=== PATIENT | female | born 1965 | race Caucasian/White ===

== ENCOUNTER → 2017-01-11 | Outpatient (CLI) | payer OTHER ==
--- NOTE | 2017-01-11 14:02 | XR ---
EXAMINATION TYPE: 3 views right shoulder. 3 views thoracic spine. 3 views lumbar spine. DATE OF EXAM: 01/11/2017 COMPARISON: NONE HISTORY: 51-year-old female thrown against the wall with pain. FINDINGS: Right shoulder: AC joint appears intact. Subacromial space is preserved. No acute fracture, subluxation, or dislocati on. Visualized right hemithorax is clear. Thoracic spine: 12 rib-bearing thoracic vertebral bodies. All pedicles are visualized. Mild endplate spondylosis mid thoracic spine. Vertebral body heights are preserved and alignment is maintained. Lumbar spine: Post surgical changes of L4-S1 posterior and interbody fusion as well as lateral osseous fusion. Holly esponding laminectomies. Vertebral body heights are maintained as is alignment. COMBINED IMPRESSION: 1. Right shoulder: No acute osseous abnormality seen. 2. Thoracic spine: No vertebral compression collapse or malalignment. 3. Lumbar spine: Status post L4-S1 lumbar fusion. No vertebral compression collapse or malalignment.
== END ==
LOC: RADXRMAIN 13:24
PROVIDERS: ATTEND Emergency Medicine
DX: S20.221A Contusion of right back wall of thorax, initial encounter (principal); S40.011A Contusion of right shoulder, initial encounter; Z98.1 Arthrodesis status
CPT/HCPCS: 72072; 72100

== ENCOUNTER → 2017-01-18 | Outpatient (CLI) | payer OTHER ==
--- NOTE | 2017-01-18 23:12 | MR ---
EXAMINATION TYPE: MR thoracic spine wo con DATE OF EXAM: 01/18/2017 COMPARISON: NONE HISTORY: Mid back pain x1 week Standard multiplanar, multisequence MRI departmental protocol Multiplanar, multisequence images of the thoracic spine were acquired. FINDINGS: The thoracic vertebra have fairly normal spacing and alignment. There is no compression fra cture. Thoracic spinal cord has normal signal pattern without evidence of edema. There is no sign of thoracic spinal stenosis. There is no thoracic paraspinal mass. Posterior elements are intact. IMPRESSION: Thoracic spine appears normal for age. No fracture. No spinal stenosis.
== END | disposition home or self-care (01) ==
LOC: RADMRIMAIN 17:06
PROVIDERS: ATTEND Emergency Medicine
DX: S20.221D Contusion of right back wall of thorax, subsequent encounter (principal); S40.011D Contusion of right shoulder, subsequent encounter; M54.5 Low back pain
CPT/HCPCS: 72146

== ENCOUNTER → 2017-01-21 | Outpatient (CLI) | payer OTHER ==
--- NOTE | 2017-01-22 16:26 | MR ---
EXAMINATION TYPE: MR lumbar spine wo/w con DATE OF EXAM: 01/21/2017 COMPARISON: None HISTORY: 51-year-old female Contusion, Low back pain Technique: Multiplanar, multisequence images of the lumbar spine were obtained before and after admin istration of 6.5 mL intravenous Gadavist gadolinium contrast. FINDINGS: Vertebral body heights are preserved and alignment is maintained. There are postsurgical changes of L4-S1 posterior and interbody with corresponding laminectomies. No significant epidural or perineural enhancing granulation tissue is seen. Right L5 hemisacralization. However, this level has been fused. Conus medullaris is normal. No suspicious bone marrow replacement. At T12-L1, no canal or foraminal stenosis. At L1-L2, no canal or foraminal stenosis. At L2-L3, there is mild posterior disc bulge and facet degenerative change. Changes result in minimal inferior foraminal narrowing on both sides without significant spinal canal stenosis. At L3-L4, the level above fusion, there is ligamentum flavum thickening and mild disc bulge with face t arthropathy. While there is circumferential attenuation of the thecal sac, there is no significant spinal canal stenosis and only minimal inferior neuroforaminal narrowing on both sides. At L4-L5, there is dorsal decompression of the thecal sac and moderate bilateral neuroforaminal steno sis. At L5-S1, there is dorsal decompression at the thecal sac with mild bilateral neuroforaminal stenosis . No prevertebral or paravertebral soft tissue anomaly seen. IMPRESSION: 1. Status post L4-S1 posterior and interbody fusion with laminectomies. 2. Above the fusion at L3-L4, there is ligamentum flavum thickening, facet arthropathy, and mild disc bulge. This causes slight circumferential attenuation of the thecal sac without significant spinal c anal stenosis. 3. Some residual hyperostotic changes at L4-L5 causing moderate bilateral neural foraminal stenosis. 4. Mild bilateral neuroforaminal stenosis at L5-S1. 5. No suspicious epidural or perineural enhancing granulation tissue.
== END | disposition home or self-care (01) ==
LOC: RADMRIMAIN 14:48
PROVIDERS: ATTEND Emergency Medicine
DX: M99.73 Connective tissue and disc stenosis of intervertebral foramina of lumbar region (principal); M51.26 Other intervertebral disc displacement, lumbar region; M46.86 Other specified inflammatory spondylopathies, lumbar region; Z98.1 Arthrodesis status
CPT/HCPCS: 72158; A9581

== ENCOUNTER 2018-04-27 12:10 | Day surgery (SDC) | payer BC ==
[2018-04-26 11:22] VITALS: BMI 24.7
[2018-04-27 12:42] VITALS: TEMP 97.9
[2018-04-27] MEDS ORDERED: LIDOCAINE 1% 20 ML VIAL (10MG/ML) FOR IV START INTRADERMA ONE (13:03)
[2018-04-27] MEDS ORDERED: LACTATED RINGERS 1,000 ML IV ONE (13:05)
[2018-04-27] MEDS ORDERED: PROPOFOL 10 MG/ML 20 ML VIAL IV ONE (13:39)
--- NOTE | 2018-04-27 13:56 | P.PCN ---
Date of Procedure: 04/27/18 Procedure(s) Performed: BRIEF HISTORY: Patient is a 52-year-old pleasant female, scheduled for an elective colonoscopy as a part of screening for colorectal neoplasia. PROCEDURE PERFORMED: Colonoscopy. PREOPERATIVE DIAGNOSIS: Screening for colon cancer. IV sedation per Anesthesia. PROCEDURE: After informed consent was obtained, the patient, was brought into the endoscopy unit. IV sedation was administered by Anesthesia under continuous monitoring. Digital rectal examination was normal. Initially the Olympus CF- 160 flexible video colonoscope was then inserted in the rectum, gradually advanced into the cecum without any difficulty. Careful examination was performed as the scope was gradually being withdrawn. Ileocecal valve and the appendiceal orifice were visualized and appeared normal. Prep was excellent. Mucosa of the cecum, ascending colon, transverse colon, descending colon, sigmoid colon, and rectum appeared normal. Retroflexion was performed in the rectum and no lesions were seen. The patient tolerated the procedure well. IMPRESSION: Normal-appearing colon from rectum to cecum with no evidence of colorectal neoplasia . RECOMMENDATIONS: Findings of this examination were discussed with the patient as well as a family. She was advised to have a repeat screening colonoscopy in 10 years.
[2018-04-27 14:02] VITALS: RESP 16
[2018-04-27 14:16] LABS: Glucose,Whole Blood 82 mg/dL (75-99)
[2018-04-27 14:23] VITALS: BP 145/84; PULSE 62
== END 2018-04-27 14:40 | disposition home or self-care (01) ==
LOC: ORWHC2ENDO 12:10
PROVIDERS: ATTEND Internal Medicine Gastroenterology
DX: Z12.11 Encounter for screening for malignant neoplasm of colon (principal); G89.29 Other chronic pain; M54.5 Low back pain; Z79.890 Hormone replacement therapy; Z88.2 Allergy status to sulfonamides
CPT/HCPCS: J2704; G0121

== ENCOUNTER → 2018-10-05 | Outpatient (CLI) | payer BC ==
--- NOTE | 2018-10-05 10:22 | MR ---
EXAMINATION TYPE: MR brain and iac wo/w con DATE OF EXAM: 10/05/2018 COMPARISON: None HISTORY: Acoustic Neuroma, vertigo, inner ear pressure TECHNIQUE: Multiplanar, multisequence images of the brain and brainstem, small [id number] high-resolution nusrat ges of the internal auditory canals is performed without and with IV contrast, utilizing 6.5 mL intra venous Gadavist . FINDINGS: Diffusion weighted images demonstrate no evidence of a recent infarct or other diffusion ab normality. There is no extra-axial fluid collection. There are subcortical hyperintensities on inver kaley recovery T2-weighted sequences within the left and right frontal white matter, approximately 3-5 lesions are present. Largest is on axial image 18 on the left measuring approximately 5 mm. The vent ricular system and cisternal spaces are normal in size and appearance. The brain volume is age appro priate. There are normal vascular flow voids. Midline structures demonstrate normal morphology. The craniocervical junction appears within normal limits. Post contrast images demonstrate no abnormal enhancement. The dural venous sinuses appear pa tent. The visualized sinuses are remarkable for mild inflammatory change in the ethmoid air cells, an d the globes are intact. IMPRESSION: Nonspecific white matter demyelination of questionable clinical significance, differentia l includes hypertension, migraine headaches, vasculitis, Lyme disease, multiple sclerosis felt to be less likely. Sinus disease. No internal auditory canal mass.
== END | disposition home or self-care (01) ==
LOC: RADMRIMAIN 07:08
PROVIDERS: ATTEND Otolaryngology Otolaryngology/Facial Plastic Surgery
DX: D33.3 Benign neoplasm of cranial nerves (principal)
CPT/HCPCS: 70553; A9585

== ENCOUNTER → 2018-10-23 | Outpatient (CLI) | payer BC ==
[2018-10-23 18:26] LABS: Protein, Total 6.2 g/dL (6.2-8.2)
[2018-10-23 18:53] LABS: Beta 2 Microglobulin 1.83 mg/L (0.61-2.37)
[2018-10-24 10:13] LABS: Albumin 3.93 g/dL (3.80-4.90); Gamma Globulin 0.72 g/dL (0.70-1.50)
[2018-10-24 11:15] LABS: IgG Subclass 3 26.7 mg/dL (11.0-85.0); IgG Subclass 4 21.9 mg/dL (3.0-175.0); Immunoglobulin M 51.4 mg/dL (40.0-280.0)
== END | disposition home or self-care (01) ==
LOC: LABWHC1 12:43
PROVIDERS: ATTEND Otolaryngology Otolaryngology/Facial Plastic Surgery
DX: D84.8 Other specified immunodeficiencies (principal)
CPT/HCPCS: 36415; 82232; 82784; 82787; 84165

== ENCOUNTER → 2019-05-22 | Outpatient (CLI) | payer BC ==
--- NOTE | 2019-05-22 11:03 | BD ---
EXAMINATION TYPE: Axial Bone Density DATE OF EXAM: 05/22/2019 COMPARISON: NONE CLINICAL HISTORY: N 95.1 Height: 62 inches Weight: 134 FRAX RISK QUESTIONS: Alcohol (3 or more units per day): no Family History (Parent hip fracture): no Glucocorticoids (More than 3mos): no (Ex: prednisone, prednisolone, methylprednisolone, dexamethasone, and hydrocortisone). History of Fracture in Adulthood: no Secondary Osteoporosis: 1. Type 1 Diabetes: no 2. Hyperthyroidism: no 3. Menopause before 45: no 4. Malnutrition: no 5. Chronic liver disease: no Rheumatoid Arthritis: no Current Tobacco Use: no RISK FACTORS HISTORY OF: Surgery to spine: yes, twice When: in last 10 years Family History of Osteoporosis: yes Active: yes Diet low in dairy products/other sources of calcium: at least one serving a day Postmenopausal woman: yes Take estrogen and/or progesterone medications: yes How long: about 3 years Lost more than 2 inches in height since high school: Frequent falls: no Poor Health: no Hyperparathyroidism: no Adrenal Insufficiency: no MEDICATIONS: Prednisone or other steroids: no Thyroid Medications: yes Which medication: Levothyroxine How Long: at least 15 years Osteoporosis Medications: no Additional Medications: vertigo med ; Estradiol, Xanax Additional History: vertigo, hysterectomy age 33 but has one ovary EXAM MEASUREMENTS: Bone mineral densitometry was performed using the Gravity System. Bone mineral density NOT measured about the Lumbar spine because of previous back surgeries Bone mineral density about the R hip (g/cm2): 0.944 Bone mineral density about the L hip (g/cm2): 0.962 T Score values are as follows: -----R Neck: -0.7 -----L Neck: -0.5 -----R Total: 0.3 -----L Total: 0.3 Bone mineral density BASELINE Bone mineral density about the L Wrist (g/cm2): 0.689 T Score values are as follows: -----Dist. R+U: 0.5 -----Prox. R+U: 0.0 -----Radius total: 0.2 Bone mineral density BASELINE IMPRESSION: Normal (Values between +1 and -1 indicate normal bone mass). Consider repeating this study in 5 year s or sooner if there is some new clinical indication. NOTE: T-SCORE=SD OF THE YOUNG ADULT MEAN.
--- NOTE | 2019-05-23 12:02 | MM ---
Reason for exam: screening (asymptomatic). Last mammogram was performed 2 years and 9 months ago. History: Retro-pectoral implants in both breasts, 2002. Taking estrogen for 3 years. Physical Findings: A clinical breast exam by your physician is recommended on an annual basis and results should be correlated with mammographic findings. MG 3D Screen Mammo Imp/Cad Bilateral CC, MLO, and ID view(s) were taken. Prior study comparison: August 05, 2016, mammogram, performed at [facility]. The breast tissue is heterogeneously dense. This may lower the sensitivity of mammography. There are benign appearing similar round 3mm left masses compared to 2017. Benign appearing bilateral calcifications. No suspicious abnormality. Bilateral retropectoral saline implants with folds bilaterally. No significant changes when compared with prior studies. ASSESSMENT: Benign, BI-RAD 2 RECOMMENDATION: Routine screening mammogram of both breasts in 1 year. Breast MRI could be considered to evaluate implant integrity.
== END | disposition home or self-care (01) ==
LOC: RADMAMWWP 09:30
PROVIDERS: ATTEND Obstetrics & Gynecology
DX: Z12.31 Encounter for screening mammogram for malignant neoplasm of breast (principal); N95.1 Menopausal and female climacteric states
CPT/HCPCS: 77063; 77067; 77080

== ENCOUNTER → 2020-07-08 | Outpatient (CLI) | payer BC ==
--- NOTE | 2020-07-14 18:18 | P.HOLTER ---
24-hour Holter monitor shows sinus mechanism, heart rates ranging from 57-154 beats a minute, average 84 beats a minute Occasional PVCs No sustained or nonsustained tachy-arrhythmias No significant bradycardia
--- NOTE | 2020-07-15 14:56 | HM ---
24-hour Holter monitor shows sinus mechanism, heart rates ranging from 57-154 beats a minute, average 84 beats a minute Occasional PVCs No sustained or nonsustained tachy-arrhythmias No significant bradycardia Additional CC's: Aris STUBBS
== END | disposition home or self-care (01) ==
LOC: RADECHMAIN 12:04
PROVIDERS: ATTEND Family Medicine
DX: R00.2 Palpitations (principal)
CPT/HCPCS: 93225; 93226

== ENCOUNTER → 2020-09-04 | Outpatient (CLI) | payer BC ==
--- NOTE | 2020-09-05 14:38 | MR ---
EXAMINATION TYPE: MR brain and iac wo/w con DATE OF EXAM: 09/04/2020 COMPARISON: MRI brain 10/05/2018 HISTORY: Persistent vertigo/imbalance TECHNIQUE: Multiplanar, multisequence images of the brain and brainstem with small [id number] and high resolu tion images through the internal auditory canals is performed without and with IV contrast, utilizing 7 mL intravenous Gadavist . FINDINGS: Diffusion weighted images demonstrate no evidence of a recent infarct or other diffusion ab normality. There is no extra-axial fluid collection or significant interval change in white matter s ignal abnormality. The ventricular system and cisternal spaces are normal in size and appearance. T he brain volume is age appropriate., Cerebellopontine angles are normal, no abnormal soft tissue vivek g the internal auditory canals, no abnormal enhancement at this level Midline structures demonstrate normal morphology. The craniocervical junction appears within normal limits. Post contrast images demonstrate no abnormal enhancement. The dural venous sinuses appear pa tent. The visualized sinuses are clear and the globes are intact. IMPRESSION: Stable brain MRI. No evident acoustic schwannoma. Nonspecific white matter demyelination is stable
== END | disposition home or self-care (01) ==
LOC: RADMRIMAIN 18:24
PROVIDERS: ATTEND Psychiatry & Neurology Neurology
DX: R90.82 White matter disease, unspecified (principal)
CPT/HCPCS: 70553; A9585

== ENCOUNTER → 2020-10-02 | Outpatient (CLI) | payer BC | END | disposition home or self-care (01) | LOC: LABWHC1 11:33 | PROVIDERS: ATTEND Internal Medicine Clinical Cardiac Electrophysiology | DX: E78.9 Disorder of lipoprotein metabolism, unspecified (principal) | CPT/HCPCS: 36415; 83721 ==

== ENCOUNTER → 2020-12-23 | Outpatient (CLI) | payer BC ==
[2020-12-24 17:02] LABS: T4, Free (Free Thyroxine) 1.1 ng/dL (0.80-1.80)
[2020-12-24 17:28] LABS: Thyroid Peroxidase Antibodies <28.0 U/mL (0.0-60.0)
== END | disposition home or self-care (01) ==
LOC: LABWHC1 15:47
PROVIDERS: ATTEND Internal Medicine Endocrinology, Diabetes & Metabolism
DX: E03.8 Other specified hypothyroidism (principal)
CPT/HCPCS: 36415; 84439; 84443; 86376; 86800

== ENCOUNTER → 2021-06-23 | Outpatient (CLI) | payer OTHER ==
--- NOTE | 2021-06-23 16:27 | XR ---
EXAMINATION TYPE: XR wrist complete RT, XR hand complete RT DATE OF EXAM: 06/23/2021 CLINICAL HISTORY: Pain and bruising after kicking injury. TECHNIQUE: Frontal, lateral and oblique images of the right hand and wrist are obtained. 4 view sca phoid view is performed. COMPARISON: None FINDINGS: There is no acute fracture/dislocation evident in the right wrist. The joint spaces in th e right wrist appear within normal limits. The overlying soft tissue appears unremarkable. Images of the right hand show no acute fracture or dislocation particular attention to second finger at area of clinical concern. Mild to moderate soft tissue swelling over the second finger. Joint spac es of the right hand are maintained. IMPRESSION: There is no acute fracture or dislocation in the right hand and wrist.
== END | disposition home or self-care (01) ==
LOC: RADXRMAIN 15:52
PROVIDERS: ATTEND Emergency Medicine
DX: S63.501A Unspecified sprain of right wrist, initial encounter (principal); S60.221A Contusion of right hand, initial encounter; X58.XXXA Exposure to other specified factors, initial encounter

== ENCOUNTER → 2021-06-29 | Outpatient (CLI) | payer OTHER ==
--- NOTE | 2021-06-29 09:37 | XR ---
EXAMINATION TYPE: XR wrist complete RT, XR hand complete RT DATE OF EXAM: 06/29/2021 CLINICAL HISTORY: Recent injury with continued pain. TECHNIQUE: Frontal, lateral and oblique images of the right hand and wrist are obtained. 4 view sca phoid view is performed. COMPARISON: Prior right wrist and hand x-ray 6 days ago FINDINGS: There is no acute fracture/dislocation evident in the right wrist. The carpal joint spaces are preserved. The overlying soft tissue appears unremarkable. No acute or subacute displaced fracture in the right hand. Joint spaces are maintained. Overlying sof t tissue is unremarkable. IMPRESSION: There is no acute fracture or dislocation in the right hand or wrist. No significant ebonie nge from prior.
== END | disposition home or self-care (01) ==
LOC: RADXRMAIN 09:05
PROVIDERS: ATTEND Emergency Medicine
DX: S63.501D Unspecified sprain of right wrist, subsequent encounter (principal); S60.221D Contusion of right hand, subsequent encounter; X58.XXXD Exposure to other specified factors, subsequent encounter

== ENCOUNTER → 2021-07-06 | Outpatient (CLI) | payer OTHER ==
[2021-07-07 02:47] LABS: ALT 22 U/L (8-44); AST 26 U/L (13-35); African American GFR (CKD) 87.4 (60.0-200.0); Albumin 4.8 g/dL (3.8-4.9); Albumin/Globulin Ratio 2.36 (1.60-3.17); Alkaline Phosphatase 51 U/L (41-126); Blood Urea Nitrogen 13.1 mg/dL (9.0-27.0); Calcium 9.9 mg/dL (8.7-10.3); Chloride 98 mmol/L (96-109); Chol/HDL Ratio 2.51 Ratio; Glucose 78 mg/dL (70-110); LDL Cholesterol,Calculated 109.4 mg/dL (0.0-131.0); Magnesium 2.4 mg/dL (1.5-2.4); Non-African American GFR(CKD) 75.4 (60.0-200.0); Potassium 4.9 mmol/L (3.5-5.5); Sodium 137 mmol/L (135-145); Total Protein 6.8 g/dL (6.2-8.2); VLDL Calculation 10.18 mg/dL (5.00-40.00)
== END | disposition home or self-care (01) ==
LOC: LABWHC1 10:54
PROVIDERS: ATTEND Internal Medicine Endocrinology, Diabetes & Metabolism
DX: E03.8 Other specified hypothyroidism (principal); I49.3 Ventricular premature depolarization; E78.5 Hyperlipidemia, unspecified
CPT/HCPCS: 36415; 80053; 80061; 83735; 84443

== ENCOUNTER → 2021-08-03 | Outpatient (CLI) | payer BC ==
--- NOTE | 2021-08-03 19:33 | US ---
EXAMINATION TYPE: US thyroid st tissue head/neck DATE OF EXAM: 08/03/2021 COMPARISON: NONE CLINICAL HISTORY: E03.8 HYPOTHYROIDISM. GLAND SIZE: Right Lobe: 3.3 x 0.8 x 0.9 cm Overall Parenchyma: homogenous Left Lobe: 3.3 x 0.7 x 0.8 cm Overall Parenchyma: homogeneous Isthmus Thickness: 0.13 cm NODULES RIGHT: # of nodules measured on right: 0 LEFT: # of nodules measured on left: 0 ISTHMUS: # of nodules measured in the isthmus: 0 Bilateral neck scanned, no evidence of lymphadenopathy. Homogeneous small sized thyroid without discrete nodule correlates with history of hypothyroidism. IMPRESSION: As above.
== END | disposition home or self-care (01) ==
LOC: RADUSWWP 16:52
PROVIDERS: ATTEND Internal Medicine Endocrinology, Diabetes & Metabolism
DX: E03.8 Other specified hypothyroidism (principal)
CPT/HCPCS: 76536

== ENCOUNTER 2021-08-20 09:27 | Observation (INO) | payer BC ==
[2021-08-20 09:32] VITALS: TEMP 98.4
[2021-08-20] MEDS ORDERED: ASPIRIN 81 MG PO STA (09:36)
[2021-08-20] MEDS ORDERED: NITROGLYCERIN OINT 1 INCH/GM PACKET TOPICAL STA (09:36)
--- NOTE | 2021-08-20 09:37 | ED ---
General Adult HPI - General Chief complaint: Chest Pain Stated complaint: Chest pain Time Seen by Provider: 08/20/21 09:30 Source: patient, EMS, RN notes reviewed, old records reviewed Mode of arrival: EMS - History of Present Illness Initial comments: This is a 55-year-old female who presents emergency Department complaining of chest pressure for the last hour. Patient states the pain radiates to her back and jaw. Patient states she has positive family history of heart disease in both mother and father. Patient denies any diaphoretic episodes. Patient states she was short of breath when it started. Patient denies nausea vomiting. Patient denies headache patient denies numbness weakness. Patient denies abdominal pain. Patient denies any smoking. Patient denies any swelling to the legs or calf tenderness. Patient states she wrote on the [place] for Li[employer] 20 miles this morning. - Related Data Home Medications Medication Instructions Recorded Confirmed Levothyroxine Sodium [Synthroid] 50 mcg PO DAILY 04/26/18 08/20/21 Ascorbic Acid [Vitamin C] 500 mg PO W/SUPPER 08/20/21 08/20/21 Baclofen [Lioresal] 10 mg PO DAILY PRN 08/20/21 08/20/21 Cholecalciferol [Vitamin D3 (125 125 mcg PO W/SUPPER 08/20/21 08/20/21 Mcg = 5000 Iu)] Magnesium Oxide 400 mg PO W/SUPPER 08/20/21 08/20/21 Melatonin 10 mg PO HS 08/20/21 08/20/21 Multivitamins, Thera [Multivitamin 1 tab PO W/SUPPER 08/20/21 08/20/21 (formulary)] Red Yeast Rice 600 mg PO W/SUPPER 08/20/21 08/20/21 Venlafaxine HCl [Effexor XR] 37.5 mg PO HS 08/20/21 08/20/21 clonazePAM [KlonoPIN] 0.25 mg PO DAILY 08/20/21 08/20/21 clonazePAM [KlonoPIN] 0.5 mg PO HS 08/20/21 08/20/21 Allergies Allergy/AdvReac Type Severity Reaction Status Date / Time Sulfa (Sulfonamide Allergy Swelling Verified 08/20/21 11:56 Antibiotics) hands and feet & fever Review of Systems ROS Statement: Those systems with pertinent positive or pertinent negative responses have been documented in the HPI. ROS Other: All systems not noted in ROS Statement are negative. Past Medical History Past Medical History: Thyroid Disorder Additional Past Medical History / Comment(s): LOW BACK PAIN, MDDS History of Any Multi-Drug Resistant Organisms: None Reported Past Surgical History: Appendectomy, Back Surgery, Cholecystectomy, Hysterectomy Past Anesthesia/Blood Transfusion Reactions: Postoperative Nausea & Vomiting (PONV) Past Psychological History: No Psychological Hx Reported Smoking Status: Never smoker Past Alcohol Use History: Rare Past Drug Use History: None Reported - Past Family History Mother Family Medical History: No Reported History General Exam - General Exam Comments Initial Comments: GENERAL: Patient is well-developed and well-nourished. Patient is nontoxic and well- hydrated and is in mild distress. ENT: Neck is soft and supple. No significant lymphadenopathy is noted. Oropharynx is clear. Moist mucous membranes. Neck has full range of motion without e liciting any pain. EYES: The sclera were anicteric and conjunctiva were pink and moist. Extraocular movements were intact and pupils were equal round and reactive to light. Eyelids were unremarkable. PULMONARY: Unlabored respirations. Good breath sounds bilaterally. No audible rales rhonchi or wheezing was noted. CARDIOVASCULAR: There is a regular rate and rhythm without any murmurs gallops or rubs. ABDOMEN: Soft and nontender with normal bowel sounds. SKIN: Skin is clear with no lesions or rashes and otherwise unremarkable. NEUROLOGIC: Patient is alert and oriented x3. Cranial nerves II through XII are grossly intact. Motor and sensory are also intact. Normal speech, volume and content. Symmetrical smile. MUSCULOSKELETAL: Normal extremities with adequate strength and full range of motion. LYMPHATICS: No significant lymphadenopathy is noted PSYCHIATRIC: Normal psychiatric evaluation. Course Vital Signs 08/20/21 08/20/21 08/20/21 09:28 10:21 10:46 Temperature 98.4 F Pulse Rate 60 58 L Pulse Rate [ 62 Crayon Sawyer ] Respiratory 18 16 Rate Blood Pressure 137/84 152/99 O2 Sat by Pulse 96 Oximetry Medical Decision Making - Medical Decision Making EKG shows sinus rhythm at 65 bpm KS interval 194 QRS is 82 QT interval 42 QTC is 413. Patient's EKG shows no ST segment elevation or depression. Patient's chest pain had resolved in the emergency department after nitro paste was applied. Chest x-ray shows no acute abnormality. I spoke with Dr. ramon under admit the patient admitted the patient I wrote admitting her to consulted cardiology. - Lab Data Result diagrams: 08/20/21 10:09 08/20/21 10:45 Lab Results 08/20/21 08/20/21 08/20/21 Range/Units 10:09 10:09 10:45 WBC 6.2 (3.8-10.6) k/uL RBC 4.22 (3.80-5.40) m/uL Hgb 13.1 (11.4-16.0) gm/dL Hct 40.0 (34.0-46.0) % MCV 94.8 (80.0-100.0) fL MCH 31.0 (25.0-35.0) pg MCHC 32.7 (31.0-37.0) g/dL RDW 12.0 (11.5-15.5) % Plt Count 282 (150-450) k/uL MPV 8.0 Neutrophils % 55 % Lymphocytes % 35 % Monocytes % 6 % Eosinophils % 1 % Basophils % 1 % Neutrophils # 3.4 (1.3-7.7) k/uL Lymphocytes # 2.2 (1.0-4.8) k/uL Monocytes # 0.4 (0-1.0) k/uL Eosinophils # 0.1 (0-0.7) k/uL Basophils # 0.1 (0-0.2) k/uL PT 10.1 (9.0-12.0) sec INR 0.9 (<1.2) APTT 23.0 (22.0-30.0) sec Sodium (137-145) mmol/L Potassium (3.5-5.1) mmol/L Chloride (98-107) mmol/L Carbon Dioxide (22-30) mmol/L Anion Gap mmol/L BUN (7-17) mg/dL Creatinine (0.52-1.04) mg/dL Est GFR (CKD-EPI)AfAm (>60 ml/min/1.73 sqM) Est GFR (CKD-EPI)NonAf (>60 ml/min/1.73 sqM) Glucose (74-99) mg/dL Calcium (8.4-10.2) mg/dL Magnesium (1.6-2.3) mg/dL Total Bilirubin (0.2-1.3) mg/dL AST (14-36) U/L ALT (4-34) U/L Alkaline Phosphatase (38-126) U/L Troponin I <0.012 (0.000-0.034) ng/mL Total Protein (6.3-8.2) g/dL Albumin (3.5-5.0) g/dL 08/20/21 Range/Units 10:45 WBC (3.8-10.6) k/uL RBC (3.80-5.40) m/uL Hgb (11.4-16.0) gm/dL Hct (34.0-46.0) % MCV (80.0-100.0) fL MCH (25.0-35.0) pg MCHC (31.0-37.0) g/dL RDW (11.5-15.5) % Plt Count (150-450) k/uL MPV Neutrophils % % Lymphocytes % % Monocytes % % Eosinophils % % Basophils % % Neutrophils # (1.3-7.7) k/uL Lymphocytes # (1.0-4.8) k/uL Monocytes # (0-1.0) k/uL Eosinophils # (0-0.7) k/uL Basophils # (0-0.2) k/uL PT (9.0-12.0) sec INR (<1.2) APTT (22.0-30.0) sec Sodium 139 (137-145) mmol/L Potassium 3.9 (3.5-5.1) mmol/L Chloride 107 (98-107) mmol/L Carbon Dioxide 28 (22-30) mmol/L Anion Gap 4 mmol/L BUN 10 (7-17) mg/dL Creatinine 0.77 (0.52-1.04) mg/dL Est GFR (CKD-EPI)AfAm >90 (>60 ml/min/1.73 sqM) Est GFR (CKD-EPI)NonAf 86 (>60 ml/min/1.73 sqM) Glucose 84 (74-99) mg/dL Calcium 8.6 (8.4-10.2) mg/dL Magnesium 2.2 (1.6-2.3) mg/dL Total Bilirubin 0.5 (0.2-1.3) mg/dL AST 31 (14-36) U/L ALT 17 (4-34) U/L Alkaline Phosphatase 46 (38-126) U/L Troponin I (0.000-0.034) ng/mL Total Protein 6.1 L (6.3-8.2) g/dL Albumin 3.8 (3.5-5.0) g/dL Disposition Clinical Impression: Chest pain Disposition: ADMITTED IP TO THIS HOSP Referrals: Aris Anguiano DO [Primary Care Provider] - 1-2 days Time of Disposition: 11:30
--- NOTE | 2021-08-20 10:27 | XR ---
EXAMINATION TYPE: XR chest 2V DATE OF EXAM: 08/20/2021 COMPARISON: NONE HISTORY: Shortness of breath TECHNIQUE: Frontal and lateral views of the chest are obtained. FINDINGS: Scattered senescent parenchymal changes noted. No evidence for infiltrate. No evidence for atelectasis. Heart size is stable. Mediastinal structures are stable and grossly unremarkable. No evidence for hilar prominence. Degenerative changes dorsal spine. IMPRESSION: 1. No evidence for acute pulmonary disease.
[2021-08-20 10:32] LABS: Basophils # (A) 0.1 k/uL (0-0.2); Basophils % (A) 1 %; Eosinophils # (A) 0.1 k/uL (0-0.7); Eosinophils % (A) 1 %; HGB 13.1 gm/dL (11.4-16.0); Lymphocytes # (A) 2.2 k/uL (1.0-4.8); Lymphocytes % (A) 35 %; MCHC 32.7 g/dL (31.0-37.0); MCV 94.8 fL (80.0-100.0); Monocytes # (A) 0.4 k/uL (0-1.0); Monocytes % (A) 6 %; Neutrophils # (A) 3.4 k/uL (1.3-7.7); Neutrophils % (A) 55 %; Platelet Count 282 k/uL (150-450); RBC 4.22 m/uL (3.80-5.40); WBC 6.2 k/uL (3.8-10.6)
[2021-08-20 10:48] LABS: INR 0.9 (<1.2); Prothrombin Time 10.1 sec (9.0-12.0)
[2021-08-20 10:49] VITALS: RESP 16
[2021-08-20 11:14] LABS: ALT 17 U/L (4-34); AST 31 U/L (14-36); African American GFR (CKD) >90 (>60 ml/min/1.73 sqM); Albumin 3.8 g/dL (3.5-5.0); Alkaline Phosphatase 46 U/L (38-126); Anion Gap 4 mmol/L; Blood Urea Nitrogen 10 mg/dL (7-17); Calcium 8.6 mg/dL (8.4-10.2); Carbon Dioxide 28 mmol/L (22-30); Chloride 107 mmol/L (98-107); Glucose 84 mg/dL (74-99); Magnesium 2.2 mg/dL (1.6-2.3); Non-African American GFR(CKD) 86 (>60 ml/min/1.73 sqM); Potassium 3.9 mmol/L (3.5-5.1); Sodium 139 mmol/L (137-145); Total Bilirubin 0.5 mg/dL (0.2-1.3); Total Protein 6.1 g/dL (6.3-8.2)
[2021-08-20] MEDS ORDERED: NITROGLYCERIN SL TABS 0.4 MG TAB SUBLINGUAL PRN (12:06)
[2021-08-20 15:01] VITALS: BP 120/56; PULSE 56
[2021-08-20] MEDS ORDERED: NITROGLYCERIN OINT 1 INCH/GM PACKET TOPICAL SCH (18:00)
[2021-08-21] MEDS ORDERED: ASPIRIN 325 MG TAB PO SCH (09:00)
[2021-08-21 09:17] LABS: HDL Cholesterol 69.7 mg/dL (40.00-60.00); Triglycerides 35.6 mg/dL (0.00-149.00)
[2021-08-21 09:35] LABS: Chol/HDL Ratio 2.45 Ratio
== END 2021-08-21 10:10 | disposition home or self-care (01) ==
LOC: EC 09:27 → 6NMEDSUR 12:06
PROVIDERS: ADMIT Family Medicine; ATTEND Family Medicine
DX: R07.89 Other chest pain (principal); R06.02 Shortness of breath; R68.84 Jaw pain; Z79.890 Hormone replacement therapy; Z88.2 Allergy status to sulfonamides; E07.9 Disorder of thyroid, unspecified; M54.50 Low back pain, unspecified; Z90.49 Acquired absence of other specified parts of digestive tract; Z90.710 Acquired absence of both cervix and uterus; Z82.49 Family history of ischemic heart disease and other diseases of the circulatory system
CPT/HCPCS: 99285; 36415; 93005; 80061; 80053; 83735; 84484; 85025; 85610; 85730; 83721; 71046; G0378 ×2

== ENCOUNTER → 2022-08-05 | Outpatient (CLI) | payer BC | END | disposition home or self-care (01) | LOC: LABWHC1 15:34 | PROVIDERS: ATTEND Internal Medicine Endocrinology, Diabetes & Metabolism | DX: E03.8 Other specified hypothyroidism (principal) | CPT/HCPCS: 36415; 84443 ==

== ENCOUNTER → 2022-10-10 | Outpatient (CLI) | payer BC ==
--- NOTE | 2022-10-12 08:08 | MM ---
Reason for Exam: Screening (asymptomatic). Last mammogram was performed 3 year(s) and 5 month(s) ago. Indicated Problems: Skin thickening or retraction of the left side for 2 Month(s). Patient History: Menarche at age 12. First Full-Term at age 24. Hysterectomy at age 33. Currently using Estrogen, for 3 years. 2001, Bilateral Implants. Risk Values: Karlene 5 year model risk: 1.4%. NCI Lifetime model risk: 7.8%. Prior Study Comparison: 08/05/2016 Screening Mammogram, [facility]. 05/22/2019 Bilateral Screening Mammogram, [facility]. Tissue Density: There are scattered fibroglandular densities. Findings: Analyzed By CAD. There is no suspicious group of microcalcifications or new suspicious mass in either breast. Bilateral saline implants are intact. Overall Assessment: Benign, BI-RAD 2 Management: Screening Mammogram of both breasts in 1 year. . Patient should continue monthly self-breast exams. A clinical breast exam by your physician is recommended on an annual basis. This exam should not preclude additional follow-up of suspicious palpable abnormalities. Note on Karlene scores and lifetime risk: 1. A Karlene score greater than 3% is considered moderate risk. If this is the case, consider specialist referral to assess eligibility for a risk reducing agent. 2. If overall lifetime risk for the development of breast cancer is 20% or higher, the patient may qualify for future screening with alternating mammogram and breast MRI. Electronically signed and approved by: Justyn Joshua M.D. Radiologis
== END | disposition home or self-care (01) ==
LOC: RADMAMWWP 15:34
PROVIDERS: ATTEND Family Medicine
DX: Z12.31 Encounter for screening mammogram for malignant neoplasm of breast (principal)
CPT/HCPCS: 77063; 77067

== ENCOUNTER → 2022-10-10 | Outpatient (CLI) | payer BC | END | disposition home or self-care (01) | LOC: LABWHC1 14:59 | PROVIDERS: ATTEND Internal Medicine Endocrinology, Diabetes & Metabolism | DX: R73.09 Other abnormal glucose (principal); Z83.3 Family history of diabetes mellitus | CPT/HCPCS: 36415; 83036 ==

== ENCOUNTER → 2022-11-24 | Outpatient (CLI) | payer BC | END | disposition home or self-care (01) | LOC: LABWHC1 11:04 | PROVIDERS: ATTEND Internal Medicine Endocrinology, Diabetes & Metabolism | DX: E03.8 Other specified hypothyroidism (principal); R73.09 Other abnormal glucose; Z83.3 Family history of diabetes mellitus | CPT/HCPCS: 36415; 83036; 84443 ==

== ENCOUNTER → 2023-05-03 | Outpatient (CLI) | payer BC ==
[2023-05-03 16:10] LABS: T4, Free (Free Thyroxine) 1.16 ng/dL (0.80-1.80)
[2023-05-03 21:29] LABS: DNA Double-Stranded Negative (Negative)
== END | disposition home or self-care (01) ==
LOC: LABWHC1 11:36
PROVIDERS: ATTEND Psychiatry & Neurology Neurology
DX: H04.129 Dry eye syndrome of unspecified lacrimal gland (principal); R42 Dizziness and giddiness
CPT/HCPCS: 36415; 84439; 84443; 85652; 86038; 86225; 86235

== ENCOUNTER → 2023-06-23 | Outpatient (CLI) | payer BC ==
--- NOTE | 2023-06-23 07:55 | MM ---
Reason for Exam: Clinical finding. Last screening mammogram was performed 8 month(s) ago. Indicated Problems: Lump or thickening of the right side for 4 Month(s). Patient History: Menarche at age 12. First Full-Term at age 24. Hysterectomy at age 33. Currently using Estrogen, for 3 years. 2001, Bilateral Implants. Risk Values: Karlene 5 year model risk: 1.4%. NCI Lifetime model risk: 7.6%. Prior Study Comparison: 08/05/2016 Screening Mammogram, [facility]. 05/22/2019 Bilateral Screening Mammogram, [facility]. 10/10/2022 Bilateral MG 3D screen mammo imp/cad., [facility]. Tissue Density: The breasts are heterogeneously dense, which may obscure small masses. Findings: Analyzed By CAD. Bilateral retropectoral saline implants. Benign bilateral oil cyst calcifications. Areas of asymmetric density are unchanged. Small area of nodularity superior left breast is also unchanged. Overall Assessment: Incomplete: need additional imaging evaluation, BI-RAD 0 Management: Diagnostic Breast Ultrasound of the right breast. For the symptomatic area in the axilla. Electronically signed and approved by: Liza Padilla M.D. Radiologist
--- NOTE | 2023-06-23 08:14 | USB ---
Reason for Exam: Clinical finding. Patient History: Menarche at age 12. First Full-Term at age 24. Hysterectomy at age 33. Currently using Estrogen, for 3 years. 2001, Bilateral Implants. Risk Values: Karlene 5 year model risk: 1.4%. NCI Lifetime model risk: 7.6%. Technique: Method: Targeted. Prior Study Comparison: 08/05/2016 Screening Mammogram, [facility]. 05/22/2019 Bilateral Screening Mammogram, [facility]. 10/10/2022 Bilateral MG 3D screen mammo imp/cad., [facility]. Findings: The upper outer quadrant of the right breast, the axilla of the right breast and the retroareolar of the right breast were scanned. Targeted ultrasound of the peripheral upper outer quadrant and axilla of the right breast (corresponding to the patient's symptomatic area of concern) including the subareolar region. Couple nonenlarged axillary lymph nodes are noted measuring up to 1.2 x 0.6 cm. Thin uniform cortex. Slightly heterogeneous fatty hilum felt to be normal variation. There is a more focal, elongated hypoechoic area located deeper in the axilla along the musculature, possible artifact/anisotropy along a myotendinous junction measuring 2.8 x 0.9 x 0.7 cm. Patient's underlying breast implant is seen. Overall Assessment: Benign, BI-RAD 2 Management: Screening Mammogram of both breasts in 1 year. If symptoms persist, consider further contrast enhanced CT evaluation for the patient's area of concern which seems to correspond to a musculoskeletal structure. A skin marker can be placed at the symptomatic site at the time of CT. A clinical breast exam by your physician is recommended on an annual basis and results should be correlated with mammographic findings. This exam should not preclude additional follow-up of suspicious palpable abnormalities. Results were given to the patient verbally at the time of exam. Electronically signed and approved by: Liza Padilla M.D. Radiologist
== END | disposition home or self-care (01) ==
LOC: RADMAMWWP 07:03
PROVIDERS: ATTEND Family Medicine
DX: N63.10 Unspecified lump in the right breast, unspecified quadrant (principal)
CPT/HCPCS: 77062; 77066

== ENCOUNTER → 2023-07-19 | Outpatient (CLI) | payer OTHER ==
--- NOTE | 2023-07-19 16:00 | XR ---
EXAMINATION TYPE: XR knee complete LT DATE OF EXAM: 07/19/2023 3:44 PM CLINICAL INDICATION:Female, 57 years old with history of S83.92XA, S80.12XA; [facility] COMPARISON: None. TECHNIQUE: XR knee complete LT; examined in Frontal, lateral and oblique projections. FINDINGS: No evidence of any acute osseous pathology, soft tissue swelling, or joint effusion is no kodi. Tricompartmental osteophyte formation involving the femoral condyles, tibial plateau and patella . Mild joint space narrowing. IMPRESSION: 1. No acute osseous pathology. 2. Mild tricompartmental osteoarthritic changes.
--- NOTE | 2023-07-19 16:01 | XR ---
EXAMINATION TYPE: XR tibia fibula LT DATE OF EXAM: 07/19/2023 3:44 PM CLINICAL INDICATION:Female, 57 years old with history of S83.92XA, S80.12XA; [facility] COMPARISON: None TECHNIQUE: XR tibia fibula LT; tibia/fibula was examined in AP and lateral projections. FINDINGS: No evidence of any acute osseous pathology, joint dislocation, or soft tissue swelling is n oted. Calcaneal plantar spurring is present. IMPRESSION: No evidence of acute fracture.
== END | disposition home or self-care (01) ==
LOC: RADXRMAIN 15:19
PROVIDERS: ATTEND Emergency Medicine
DX: M17.12 Unilateral primary osteoarthritis, left knee (principal); S83.92XA Sprain of unspecified site of left knee, initial encounter; S80.12XA Contusion of left lower leg, initial encounter; X58.XXXA Exposure to other specified factors, initial encounter

== ENCOUNTER → 2023-07-21 | Outpatient (CLI) | payer BC ==
[2023-07-21 16:04] LABS: Basophils # (A) 0.03 X 10*3/uL (0.00-0.10); Basophils % (A) 0.6 %; Eosinophils # (A) 0.04 X 10*3/uL (0.04-0.35); Eosinophils % (A) 0.8 %; HCT 42.6 % (37.2-46.3); HGB 13.7 g/dL (12.0-15.0); Lymphocytes # (A) 2.23 X 10*3/uL (0.90-5.00); Lymphocytes % (A) 41.9 %; MCH 31.4 pg (27.0-32.0); MCHC 32.2 g/dL (32.0-37.0); MCV 97.5 FL (80.0-97.0); Mean Platelet Volume 11.3 FL (9.5-12.2); Monocytes # (A) 0.34 X 10*3/uL (0.20-1.00); Monocytes % (A) 6.4 %; NRBC Per 100 WBC 0 X 10*3/uL (0.00-0.01); Neutrophils # (A) 2.67 X 10*3/uL (1.80-7.70); Neutrophils % (A) 50.1 %; Platelet Count 283 X 10*3/uL (140-440); RBC 4.37 X 10*6/uL (4.10-5.20); WBC 5.32 X 10*3/uL (4.50-10.00)
[2023-07-21 16:44] LABS: ALT 16 U/L (8-44); AST 24 U/L (13-35); Albumin 4.7 g/dL (3.8-4.9); Albumin/Globulin Ratio 2.24 Ratio (1.60-3.17); Alkaline Phosphatase 39 U/L (41-126); BUN/Creat Ratio 24.88 Ratio (12.00-20.00); Blood Urea Nitrogen 19.9 mg/dL (9.0-27.0); Calcium 10.1 mg/dL (8.7-10.3); Carbon Dioxide 21.5 mmol/L (21.6-31.8); Chloride 106 mmol/L (96-109); Globulin 2.1 g/dL (1.6-3.3); Glucose 90 mg/dL (70-110); Potassium 3.9 mmol/L (3.5-5.5); Sodium 141 mmol/L (135-145); T4, Free (Free Thyroxine) 1.49 ng/dL (0.80-1.80); Total Bilirubin 0.3 mg/dL (0.3-1.2); Total Protein 6.8 g/dL (6.2-8.2)
== END | disposition home or self-care (01) ==
LOC: LABWHC1 10:56
PROVIDERS: ATTEND Psychiatry & Neurology Neurology
DX: Z51.81 Encounter for therapeutic drug level monitoring (principal); E03.9 Hypothyroidism, unspecified; G43.909 Migraine, unspecified, not intractable, without status migrainosus; J00 Acute nasopharyngitis [common cold]; Z79.899 Other long term (current) drug therapy
CPT/HCPCS: 36415; 80053; 84439; 84443; 85025